=== PATIENT | female | born 1970 | race Caucasian/White ===

== ENCOUNTER → 2017-03-18 | Outpatient (CLI) | payer BC, SELFPAY | PROVIDERS: Visit Provider Physician Assistant | DX: M25.50 Pain in unspecified joint (principal) | CPT/HCPCS: 80053; 85025; 85651; 86038; 86140; 86200; 86431; 86617 ==

== ENCOUNTER → 2020-08-09 09:49 | Outpatient (CLI) | payer OTHER, SELFPAY ==
--- NOTE | 2020-08-09 09:49 | MM_ITS ---
PROCEDURE INFORMATION: Exam: MG Screening 3D Mammography Exam date and time: 08/09/2020 9:49 AM Age: 50 years old Clinical indication: Encounter for screening mammogram for malignant neoplasm of breast TECHNIQUE: Imaging protocol: Screening tomosynthesis and 2D mammography including computer-aided detection (CAD) when performed. COMPARISON: No relevant prior studies available. FINDINGS: MAMMOGRAPHY: Breast composition: The breast tissue is composed of scattered areas of fibroglandular density. Mass: None. Architectural distortion: None. Calcifications: No suspicious calcifications. Asymmetric density: None. Skin thickening: None. Axillary adenopathy: None. IMPRESSION: No mammographic evidence of malignancy. Annual screening is recommended unless otherwise clinically indicated. ASSESSMENT: BI-RADS Category 1: Negative
== END ==
PROVIDERS: PCP Physician Assistant; Visit Provider Physician Assistant
DX: Z12.31 Encounter for screening mammogram for malignant neoplasm of breast (principal)
CPT/HCPCS: 77063; 77067

== ENCOUNTER 2020-10-05 10:07 | Emergency (ER) | payer OTHER, SELFPAY ==
[2020-10-05 10:15] VITALS: BP 129/87; PULSE 90; RESP 18; TEMP 36.6; O2SAT 100; BMI 29.2
--- NOTE | 2020-10-05 10:25 | HMH.EDGENADL ---
ED Disposition Clinical Impression: Diverticulitis Cholelithiasis Qualifiers: Cholelithiasis location: gallbladder Cholecystitis presence: without cholecystitis Biliary obstruction: without biliary obstruction Qualified Code(s): K80.20 - Calculus of gallbladder without cholecystitis without obstruction Disposition: Home, Self-Care Condition on Discharge: Good Instructions: DI for Diverticulitis, DI for Acute Abdominal Pain Additional Instructions: Antibiotics as prescribed. Toradol as needed for pain. Follow-up with your primary care doctor next week. Additional instructions for ABDOMINAL PAIN: See your physician as soon as possible for further evaluation. Return immediately if worsening abdominal pain, vomiting, shortness of breath, fever, vomiting of blood or abdominal distention. Prescriptions: Ketorolac Tromethamine [Toradol 10mg tablet] 10 mg PO Q6HP PRN #10 tab PRN Reason: Moderate Pain Transmission Status: Pending to [facility] Ciprofloxacin HCl [Cipro 500mg Tab] 500 mg PO BID #20 tab Transmission Status: Pending to [facility] metroNIDAZOLE [Flagyl] 500 mg PO TID #30 tab Transmission Status: Pending to [facility] Referrals: Kirti Doyle PA [Primary Care Provider] - - Critical Care Critical Care Time: No Attestation: On 10/05/20, the high probability of a clinically significant, sudden or life threatening deterioration of the following system(s) required my full and direct attention, intervention and personal management. The time I documented below is in addition to time spent performing reported procedures but includes the following listed in this critical care notation. Medical Decision Making - Oj Inquiry Pt receiving controlled substance: No Vital Signs: 10/05/20 10:15 10/05/20 11:08 Temperature 97.9 F Temperature Source Oral Pulse Rate 85 Pulse Rate [Left Radial] 90 Respiratory Rate 18 18 Blood Pressure 128/99 H Blood Pressure [Right Arm] 129/87 Blood Pressure Mean 109 Blood Pressure Mean [Right Arm] 101 Blood Pressure Source [Right Arm] Automatic Cuff Blood Pressure Position [Right Arm] Sitting 02 Sat by Pulse Oximetry 100 98 Oxygen Delivery Method Room Air - Lab Data Lab Results 10/05/20 10:25: WBC 11.8 H, RBC 4.37, Hgb 13.2, Hct 37.5, MCV 85.8, MCH 30.3, MCHC 35.3, RDW 13.1, Plt Count 337, MPV 7.2 L, Neut % (Auto) 82.3 H, Lymph % (Auto) 13.5, [place] % (Auto) 2.9, Eos % (Auto) 1.0, Baso % (Auto) 0.4, Neut # (Auto) 9.7 H, Lymph # (Auto) 1.6, [place] # (Auto) 0.3, Eos # (Auto) 0.1, Baso # (Auto) 0.1 10/05/20 10:25: Sodium 141, Potassium 3.9, Chloride 106, Carbon Dioxide 27, Anion Gap 11.9, BUN 11, Creatinine 0.70, Estimated Creat Clear 104, Estimated GFR 89, Est GFR ( Amer) 108, Glucose 110 H, Calcium 10.3 H, Total Bilirubin 0.5, AST 40 H, ALT 77, Alkaline Phosphatase 126, Total Protein 7.9, Albumin 4.6, Globulin 3.3 H, Albumin/Globulin Ratio 1.4, Amylase 51, Lipase 70 10/05/20 10:36: Urine Color Yellow, Urine Appearance Clear, Urine pH 6.0, Ur Specific [place] >= 1.030, Urine Protein Negative, Urine Glucose (UA) Negative, Urine Ketones Negative, Urine Blood 2+, Urine Nitrate Negative, Urine Bilirubin Negative, Urine Urobilinogen 0.2, Ur Leukocyte Esterase Negative, Urine RBC None, Urine WBC None, Ur Squamous Epith Cells Occasional, Urine Bacteria None Result diagrams: 10/05/20 10:25 10/05/20 10:25 Orders (Tests/Meds): ED MEDICATIONS Generic Name Dose Route Start Last Admin Trade Name Frechristine PRN Reason Stop Dose Admin Levofloxacin/Dextrose 750 mg in 150 mls @ 100 mls/hr 10/05/20 12:30 Levofloxacin 750mg/150ml Premix IV 10/19/20 12:29 Q24H ANKUR Protocol Metronidazole 500 mg in 100 mls @ 100 mls/hr 10/05/20 12:30 Flagyl 500mg/100ml Ivpb IV 10/19/20 12:29 Q8H ANKUR Protocol Discontinued Medications Generic Name Dose Route Start Last Admin Trade Name Mariana
[2020-10-05 10:46] LABS: Microscopic, Urine URINE MICROSCOPIC (MICROSCOPIC)
[2020-10-05 10:47] LABS: Appearance,Urine CLEAR (Clear); Bilirubin,Urine Negative (Negative); Blood, Urine 2+ (Negative); Color,Urine YELLOW (Yellow); Glucose,Urine (UA) Negative (Negative); Ketones,Urine Negative (Negative); Leukocyte Esterase,Urine Negative (Negative); Nitrate,Urine Negative (Negative); Protein,Urine Negative (Negative); Specific Gravity, Urine >= 1.030 (1.005-1.030); Urobilinogen,Urine 0.2 EU/dl (0.2)
[2020-10-05 10:50] LABS: Basophils # 0.1 K/mm3 (0-0.2); Basophils % 0.4 % (0.1-2.0); Eosinophils # 0.1 K/mm3 (0.0-0.4); Hematocrit 37.5 % (37.0-47.0); Hemoglobin 13.2 g/dL (12.2-16.2); Lymphocytes # 1.6 K/mm3 (0.7-4.5); Lymphocytes % 13.5 % (10-50); Mean Corpuscular HGB Conc 35.3 g/dL (31.8-35.4); Mean Corpuscular Hemoglobin 30.3 pg (27.0-31.2); Mean Corpuscular Volume 85.8 fl (81-99); Mean Platelet Volume 7.2 fl (7.4-10.4); Monocytes # 0.3 K/mm3 (0.1-1.0); Monocytes % 2.9 % (1.7-9.3); Neutrophils # 9.7 K/mm3 (1.8-7.8); Neutrophils % 82.3 % (37.0-80.0); Platelet Count 337 K/mm3 (142-424); Red Blood Count 4.37 M/mm3 (4.20-5.40); Red Cell Distribution Width 13.1 % (11.5-17.5); White Blood Count 11.8 K/mm3 (4.8-10.8)
[2020-10-05 10:59] LABS: Chloride 106 mmol/L (98-107); Potassium 3.9 mmoL/L (3.5-5.1); Sodium 141 mmol/L (136-145)
--- NOTE | 2020-10-05 11:00 | CT_ITS ---
PROCEDURE: CT ABDOMEN PELVIS W CON CLINICAL INDICATION: abdo pain Lower abdominal pain COMPARISON: No exams were available for comparison TECHNIQUE: IV Contrast: 75ML Isovue 370 Oral Contrast None Axial images obtained with sagittal and coronal reformats. All CT scans at the facility use one or more dose reduction, viz: automated exposure control, ma/kV adjustment per patient size (including targeted exams where dose is matched to indication, i.e. head), or iterative reconstruction technique. FINDINGS: LOWER THORAX: No acute finding ABDOMEN & PELVIS: The liver, spleen, adrenal glands, and pancreas have an unremarkable appearance. Gallstones are present. No obvious biliary dilatation. There is a 3.8 cm right renal cyst in the upper pole of the right kidney. No renal or ureteral calculi. No hydronephrosis. Unremarkable appendix. No intestinal obstruction. There is a mild amount of retained colonic feces. There is colonic diverticulosis. There is a focal area of thickening involving the sigmoid colon in the mid pelvic region with some stranding of the pericolic fat suspicious for acute diverticulitis. There is a minimal amount of pelvic fluid but no localized abscess apparent and no evidence of perforation. There has been a prior hysterectomy. No acute bony findings. IMPRESSION: 1. Colonic diverticulosis with focal thickening of the sigmoid colon in the mid pelvic region and stranding of the pericolic fat suspicious for acute diverticulitis without evidence of abscess or perforation. There is a small amount fluid in the pelvis. Strongly recommend convalescent follow-up with colonoscopy as sigmoid neoplasm could have a similar appearance. 2. Cholelithiasis Dictated by: Anton Bello MD 10/05/2020 12:14 Anton Bello MD in [place] 10/05/2020 12:14
[2020-10-05 11:01] LABS: Alanine Aminotransferase 77 U/L (12-78); Amylase 51 U/L (30-110); Aspartate Amino Transferase 40 U/L (14-36); Blood Urea Nitrogen 11 mg/dl (7-17); Creatinine Clearance Estimated 104 mL/min (50-200); Estimated Glomerular Filt Rate 89 ml/min (>60); GFR (African American) 108 ML/MIN (>60)
[2020-10-05 11:02] LABS: Albumin Level 4.6 g/dl (3.5-5.0); Albumin/Globulin Ratio 1.4 (1.1-1.8); Alkaline Phosphatase 126 U/L (38-126); Anion Gap 11.9 mEq/L (5-15); Bilirubin,Total 0.5 mg/dl (0.2-1.3); Calcium 10.3 mg/dl (8.4-10.2); Carbon Dioxide 27 mmol/L (22.0-30.0); Globulin 3.3 g/dL (1.3-3.2); Glucose 110 mg/dl (74-100); Lipase 70 U/L (23-300); Total Protein,Serum 7.9 g/dl (6.3-8.2)
[2020-10-05 11:08] VITALS: BP 128/99; PULSE 85; RESP 18; O2SAT 98
[2020-10-05 11:13] LABS: Squamous Epithelial Cell,Urine Occasional #/hpf (0-5)
--- NOTE | 2020-10-05 11:13 | PC.NURSE ---
Pt states she doesnt take naproxen just because it upsets her stomach, not that she is allergic to it.
[2020-10-05 11:30] VITALS: BP 136/80; PULSE 76; RESP 20; O2SAT 98
[2020-10-05 14:32] VITALS: BP 137/84; PULSE 84; RESP 20; TEMP 36.6
== END 2020-10-05 14:37 | disposition home or self-care (01) ==
PROVIDERS: Emergency Provider Emergency Medicine; PCP Physician Assistant
DX: K57.92 Diverticulitis of intestine, part unspecified, without perforation or abscess without bleeding (principal); K80.20 Calculus of gallbladder without cholecystitis without obstruction; F41.9 Anxiety disorder, unspecified; F17.210 Nicotine dependence, cigarettes, uncomplicated
CPT/HCPCS: 74177; 80053; 81001; 82150; 83690; 85025; 96365; 96367; 96375; 99283; J1956; Q9967

== ENCOUNTER → 2020-10-09 13:29 | Outpatient (CLI) | payer OTHER, SELFPAY | PROVIDERS: Visit Provider Family Medicine | DX: N39.0 Urinary tract infection, site not specified (principal) | CPT/HCPCS: 87086 ==

== ENCOUNTER → 2020-11-29 15:18 | Outpatient (CLI) | payer OTHER, SELFPAY | PROVIDERS: PCP Family Medicine; Visit Provider Family Medicine | DX: Z01.812 Encounter for preprocedural laboratory examination (principal); Z11.52 Encounter for screening for COVID-19; U07.1 COVID-19; Z12.11 Encounter for screening for malignant neoplasm of colon | CPT/HCPCS: U0003 ==

== ENCOUNTER → 2020-12-15 15:32 | Outpatient (CLI) | payer OTHER, SELFPAY ==
[2020-12-17 14:01] LABS: Adenovirus F 40/41, stool Not Detected (NotDetected); Astrovirus Not Detected (NotDetected); Campylobacter Not Detected (NotDetected); Cryptosporidium Not Detected (NotDetected); Cyclospora Cayetanesis Not Detected (NotDetected); Entamoeba histolytica Not Detected (NotDetected); Enteroaggregative E coli Not Detected (NotDetected); Enteropathogenic E coli Not Detected (NotDetected); Enterotoxigenic E coli Not Detected (NotDetected); Giardia lamblia Not Detected (NotDetected); Norovirus Not Detected (NotDetected); Plesimonas Shigalloides, PCR Not Detected (NotDetected); Rotavirus A Not Detected (NotDetected); Salmonella, PCR Not Detected (NotDetected); Sapovirus Not Detected (NotDetected); Shiga-like toxin E coli Not Detected (NotDetected); Shigella Enterovasive E coli Not Detected (NotDetected); Vibrio Cholerae Not Detected (NotDetected); Vibrio, PCR Not Detected (NotDetected); Yersinia Entercolitica, PCR Not Detected (NotDetected)
[2020-12-17 18:10] LABS: Clostridium Difficile A/B, PCR Detected (NotDetected)
== END ==
PROVIDERS: Visit Provider Family Medicine
DX: R19.5 Other fecal abnormalities (principal); A04.72 Enterocolitis due to Clostridium difficile, not specified as recurrent
CPT/HCPCS: 87507

== ENCOUNTER 2021-01-09 08:38 | Day surgery (SDC) | payer OTHER, SELFPAY ==
[2021-01-07 09:30] VITALS: BMI 29.7
[2021-01-09] VITALS (8 sets, daily range): BP systolic 103–128; BP diastolic 55–75; PULSE 65–87; RESP 16–18; TEMP 36.4–36.7; O2SAT 92–100
--- NOTE | 2021-01-09 08:56 | P.PN_ITS ---
[facility] Anesthesia Checklist - Patient Identification Patient Identification: Arm Band - Structural Data Admitted From: Home Planned Operative Procedure/s: Colonoscopy Consent for Planned Operative Procedure(s) Verified: Yes - NPO Status Verified Time NPO: 04:00 (Prep) - Airway Assessment C-Spine Mobility Assessed: Yes TMJ Mobility Assessed: Yes Dentition: Good Dentition - Neurological Assessment Level of Consciousness: Awake Hx Seizures: No Numbness or tingling in extremities: No - Anesthesia Plan Anesthesia Risk discussed: Yes Anesthesia Plan: Verified ASA Class: II Anesthesia Type: MAC [facility] History Medical History: Reports:: Anxiety Denies:: Cancer, Diabetes Mellitus Type 1, Diabetes Mellitus Type 2, Internal Pacemaker, MRSA *Have you ever received a pneumonia vaccine?: No *Have you received a flu vaccine this season?: No Anesthesia experience/problems:: None Other Surgeries: Yes: Hysterectomy-Total. No: Pacemaker Amputation: No Fractures: Yes (patella) - *Social History Last grade of school completed: Advanced degree Smoking Status: Current every day smoker Tobacco Type: cigarettes # Packs/Day (cigarettes): 1 Alcohol Intake: never Alcohol Intake Frequency:: holidays/special occasions only Substance Use Type: denies use *Occupational Status:: employed Housing: apartment Household Members: spouse *Travel in the last 8 weeks: Inside the [place] - Psychiatric History Pschychiatric History:: Reports:: Anxiety Family Hx:: Cancer
--- NOTE | 2021-01-09 09:27 | HMH.GSHP ---
HPI HPI: Patient is a 50-year-old female referred by Dr. Aguirre for colonoscopy. She had presented to the emergency department on 10/05/[address] scan revealed thickening of the sigmoid colon with stranding consistent with diverticulitis. Follow-up colonoscopy was recommended. She has been on ciprofloxacin and metronidazole. She states she is doing better but has some occasional discomfort. She has cut out cigarettes and soda recently and is taking a high-fiber diet. She does however have a longstanding history of some occasional chronic GI type symptoms and stated that she had undergone sigmoidoscopy about 25 years ago. She describes being lactose intolerant. She has never had prior colonoscopy. She does state that her grandfather was diagnosed with colon cancer on postmortem at an advanced age. [facility] History I have reviewed the patient's past medical history: Yes Medical History: Reports:: Anxiety Denies:: Cancer, Diabetes Mellitus Type 1, Diabetes Mellitus Type 2, Internal Pacemaker, MRSA, Seizures *Have you ever received a pneumonia vaccine?: No *Have you received a flu vaccine this season?: No Anesthesia experience/problems:: None Other Surgeries: Yes: Hysterectomy-Total. No: Pacemaker Amputation: No Fractures: Yes (patella) - *Social History Last grade of school completed: Advanced degree Smoking Status: Current every day smoker Tobacco Type: cigarettes # Packs/Day (cigarettes): 1 Alcohol Intake: never Alcohol Intake Frequency:: holidays/special occasions only Substance Use Type: denies use *Occupational Status:: employed Housing: apartment Household Members: spouse *Travel in the last 8 weeks: Inside the [facility] - Psychiatric History Pschychiatric History:: Reports:: Anxiety Family Hx:: Cancer Review of Systems - Review of Systems Review of systems:: pertinent systems reviewed and negative unless documented below Meds Home Medications Medication Instructions Recorded Confirmed Type No Known Home Medications 01/07/21 01/09/21 History Allergies Allergy/AdvReac Type Severity Reaction Status Date / Time naproxen Allergy Mild Vomiting Verified 01/09/21 09:05 penicillin G Allergy Mild Rash Verified 01/09/21 09:05 Exam Vital signs and Labs for Last 24 Hours: Temp Pulse Resp BP Pulse Ox 98.0 F 87 18 103/55 L 97 01/09/21 09:00 01/09/21 09:00 01/09/21 09:00 01/09/21 09:00 01/09/21 09:00 I & O for Last 24 hours: Intake & Output 01/06/21 01/07/21 01/08/21 01/09/21 11:59 11:59 11:59 11:59 Weight 152 lb - Constitutional no acute distress - *Routine HEENT Exam Head: Present: normocephalic Eye: Present: EOMI, PERRL ENT: Present: mucous membranes moist - *Routine Neck Exam Present: supple. Absent: lymphadenopathy - *Routine Respiratory Exam Present: CTA bilaterally - *Routine Cardiovascular Exam Present: RRR - *Routine Abdominal Exam Present: soft, normoactive bowel sounds. Absent: tenderness - *Routine Rectal Exam Rectal:: deferred - *Routine Genitalia Exam Genitalia:: deferred - *Routine Extremities Exam Absent: cyanosis, clubbing, edema - *Routine Skin Exam Present: warm. Absent: rash - *Routine Neurological Exam Present: alert, oriented X3 Assessment and Plan - Assessment and plan all Dx Assessment and Plan for all problems:: Plan for colonoscopy
--- NOTE | 2021-01-09 10:24 | HMH.SCOPE ---
- Procedure: Date: 01/09/21 Patient Date of :: 1970 Procedure Performed:: Partial colonoscopy Indications:: Patient is a 50-year-old female referred by Dr. Aguirre for colonoscopy. She had presented to the emergency department on 10/05/[address] scan revealed thickening of the sigmoid colon with stranding consistent with diverticulitis. Follow-up colonoscopy was recommended. She has been on ciprofloxacin and metronidazole. She states she is doing better but has some occasional discomfort. She has cut out cigarettes and soda recently and is taking a high-fiber diet. She does however have a longstanding history of some occasional chronic GI type symptoms and stated that she had undergone sigmoidoscopy about 25 years ago. She describes being lactose intolerant. She has never had prior colonoscopy. She does state that her grandfather was diagnosed with colon cancer on postmortem at an advanced age. Performing Provider:: Rome Carreon MD Referring Provider:: Simon Aguirre MD Sedation:: MAC sedation Procedure:: Patient was taken to endoscopy procedure room. She was positioned in lateral decubitus position. Adequate intravenous sedation was achieved with anesthesia titration of propofol. Variable stiffness Olympus colonoscope was inserted via the anus. It was unable to be advanced beyond the rectosigmoid. Multiple attempts were made for prolonged duration and the colonoscope was unable to be advanced beyond about 25 cm due to possible severe diverticulosis. The colonoscope was then removed after prolonged period of time and Olympus endoscope was inserted. With some difficulty it was able to be advanced beyond the rectosigmoid. There appeared to be significant chronic diverticulosis at this location. The endoscope was able to be advanced to approximately the hepatic flexure. Due to the limited length of the endoscope was unable to be advanced into the right colon. The endoscope was slowly withdrawn through the colon with careful surveillance. Colonic preparation was fair as there was some liquid particulate stool with vegetable matter but adequate visualization was achieved with irrigation and suctioning. There was noted to be significant distal sigmoid diverticulosis but no evidence of any mass or polyps. The colonoscope was withdrawn. Findings:: Severe distal sigmoid diverticulosis with likely chronic fibrosis Recommendations:: I will obtain a barium enema post procedure to evaluate the right colon. Pending the findings on barium enema likely repeat colonoscopy 6 to 12 months Complications:: None immediately apparent Estimated blood obtained (mL): 3
== END 2021-01-09 12:15 | disposition home or self-care (01) ==
LOC: OUTP 08:40
PROVIDERS: PCP Family Medicine; Visit Provider Surgery
PROC: 0DJD8ZZ Inspection of Lower Intestinal Tract, Via Natural or Artificial Opening Endoscopic (ICD-10-PCS; CPT 45330; principal; 2021-01-09 09:30)
DX: K57.32 Diverticulitis of large intestine without perforation or abscess without bleeding (principal); Z87.19 Personal history of other diseases of the digestive system; F41.9 Anxiety disorder, unspecified; Z72.0 Tobacco use; Z88.0 Allergy status to penicillin; Z88.6 Allergy status to analgesic agent
CPT/HCPCS: 45330; J2405; J2704

== ENCOUNTER → 2021-01-09 13:50 | Outpatient (CLI) | payer OTHER, SELFPAY ==
--- NOTE | 2021-01-09 13:57 | FL_ITS ---
PROCEDURE: FL BARIUM ENEMA CLINICAL INDICATION: INCOMPLETE COLONASCOPY COMPARISON: CT CT ABDOMEN PELVIS W CON from 10/05/2020 FINDINGS: Fluoroscopy time: 3 minutes This exam was very limited as the patient was not able to tolerate complete filling of the colon. There is prominent diverticulosis of the descending colon and sigmoid colon. There is a 3 cm long segment narrowing at the junction of the descending and sigmoid colon. There is some irregularity of the mucosa at this region. The patient did appear to have sigmoid diverticulitis at this region on an older CT scan. This could represent a colon neoplasm or inflammatory stricture. Please correlate with colonoscopy findings. The colon was not adequately distended proximal to this lesion secondary to patient's discomfort IMPRESSION: Colonic diverticulosis with 3 cm long segment of irregular narrowing at the junction of the descending and sigmoid colon. Differential diagnosis includes colonic neoplasm or postinflammatory stricture. Please correlate with sigmoidoscopy findings. Dictated by: Anton Bello MD 01/09/2021 19:53 Anton Bello MD in [place] 01/09/2021 19:53
== END ==
PROVIDERS: PCP Family Medicine; Visit Provider Surgery
DX: K57.92 Diverticulitis of intestine, part unspecified, without perforation or abscess without bleeding (principal)
CPT/HCPCS: 74270

== ENCOUNTER → 2021-01-31 10:21 | Outpatient (CLI) | payer OTHER, SELFPAY ==
[2021-01-31 10:26] LABS: Adenovirus F 40/41, stool Not Detected (NotDetected); Astrovirus Not Detected (NotDetected); Campylobacter Not Detected (NotDetected); Clostridium Difficile A/B, PCR Not Detected (NotDetected); Cryptosporidium Not Detected (NotDetected); Cyclospora Cayetanesis Not Detected (NotDetected); Entamoeba histolytica Not Detected (NotDetected); Enteroaggregative E coli Not Detected (NotDetected); Enteropathogenic E coli Not Detected (NotDetected); Enterotoxigenic E coli Not Detected (NotDetected); Giardia lamblia Not Detected (NotDetected); Norovirus Not Detected (NotDetected); Plesimonas Shigalloides, PCR Not Detected (NotDetected); Rotavirus A Not Detected (NotDetected); Salmonella, PCR Not Detected (NotDetected); Sapovirus Not Detected (NotDetected); Shiga-like toxin E coli Not Detected (NotDetected); Shigella Enterovasive E coli Not Detected (NotDetected); Vibrio Cholerae Not Detected (NotDetected); Vibrio, PCR Not Detected (NotDetected); Yersinia Entercolitica, PCR Not Detected (NotDetected)
== END ==
PROVIDERS: Visit Provider Nurse Practitioner Family
DX: R19.5 Other fecal abnormalities (principal); K57.92 Diverticulitis of intestine, part unspecified, without perforation or abscess without bleeding
CPT/HCPCS: 87507

== ENCOUNTER 2021-02-28 14:59 | Outpatient (CLI) | payer OTHER, SELFPAY ==
[2021-02-28 15:13] VITALS: BMI 29.5
[2021-02-28 15:20] VITALS: BP 157/89; PULSE 88; RESP 18; O2SAT 95
[2021-02-28 15:32] LABS: Adenovirus F 40/41, stool Not Detected (NotDetected); Astrovirus Not Detected (NotDetected); Campylobacter Not Detected (NotDetected); Cryptosporidium Not Detected (NotDetected); Cyclospora Cayetanesis Not Detected (NotDetected); Entamoeba histolytica Not Detected (NotDetected); Enteroaggregative E coli Not Detected (NotDetected); Enteropathogenic E coli Not Detected (NotDetected); Enterotoxigenic E coli Not Detected (NotDetected); Giardia lamblia Not Detected (NotDetected); Norovirus Not Detected (NotDetected); Plesimonas Shigalloides, PCR Not Detected (NotDetected); Rotavirus A Not Detected (NotDetected); Salmonella, PCR Not Detected (NotDetected); Sapovirus Not Detected (NotDetected); Shiga-like toxin E coli Not Detected (NotDetected); Shigella Enterovasive E coli Not Detected (NotDetected); Vibrio Cholerae Not Detected (NotDetected); Vibrio, PCR Not Detected (NotDetected); Yersinia Entercolitica, PCR Not Detected (NotDetected)
[2021-02-28 16:25] VITALS: BP 146/84; PULSE 81; RESP 18
[2021-02-28 19:58] LABS: Clostridium Difficile A/B, PCR Detected (NotDetected)
== END 2021-02-28 16:25 | disposition home or self-care (01) ==
LOC: INF 15:01
PROVIDERS: PCP Family Medicine; Visit Provider Colon & Rectal Surgery
DX: K57.30 Diverticulosis of large intestine without perforation or abscess without bleeding (principal)
CPT/HCPCS: 87045; 87507; 96360

== ENCOUNTER → 2021-10-21 14:21 | Outpatient (CLI) | payer OTHER, SELFPAY ==
[2021-10-21 14:36] LABS: Hemoglobin A1C 4.9 % (4.0-6.0)
[2021-10-21 21:22] LABS: Thyroid Stimulating Hormone 1.41 uIU/mL (0.465-4.68)
== END ==
PROVIDERS: PCP Family Medicine; Visit Provider Family Medicine
DX: R63.5 Abnormal weight gain (principal)
CPT/HCPCS: 83036; 84443

== ENCOUNTER 2021-12-01 19:02 | Observation (INO) | payer OTHER, SELFPAY ==
[2021-12-01] VITALS (9 sets, daily range): BP systolic 102–153; BP diastolic 49–85; PULSE 64–92; RESP 16; TEMP 36.8; O2SAT 96–99; BMI 32.4
--- NOTE | 2021-12-01 19:34 | CT_ITS ---
PROCEDURE INFORMATION: Exam: CT Abdomen And Pelvis Without Contrast Exam date and time: 12/01/2021 7:45 PM Age: 51 years old Clinical indication: Other: Gi bleeding; Prior surgery; Surgery date: 6+ months; Surgery type: Section of bowel removed February 2021 due to diverticulitis. Hysterectomy. TECHNIQUE: Imaging protocol: Computed tomography of the abdomen and pelvis without contrast. Radiation optimization: All CT scans at this facility use at least one of these dose optimization techniques: automated exposure control; mA and/or kV adjustment per patient size (includes targeted exams where dose is matched to clinical indication); or iterative reconstruction. COMPARISON: CT ABDOMEN PELVIS W CON 10/05/2020 11:51 AM FINDINGS: Liver: Parenchymal enhancement is not evaluated without contrast. No hepatomegaly. Gallbladder and bile ducts: Calcified gallstones within the gallbladder lumen. Pancreas: Parenchymal enhancement is not evaluated without contrast. No ductal dilation. Spleen: Parenchymal enhancement is not evaluated without contrast. No splenomegaly. Adrenal glands: No mass. Kidneys and ureters: 4.1 cm low-density right renal lesion which is likely a cyst. No hydronephrosis. Stomach and bowel: Postsurgical changes. Diverticulosis coli without evidence for diverticulitis. No obstruction. Appendix: No evidence of appendicitis. Intraperitoneal space: No free air. No significant fluid collection. Vasculature: Limited evaluation without contrast. No abdominal aortic aneurysm. Lymph nodes: No enlarged lymph nodes. Urinary bladder: No acute abnormality. Reproductive: Status post hysterectomy. Bones/joints: No acute fracture. Soft tissues: Limited evaluation without contrast. No significant soft tissue swelling. IMPRESSION: 1. Calcified gallstones within the gallbladder lumen. 2. Diverticulosis coli without evidence for diverticulitis.
--- NOTE | 2021-12-01 19:34 | XR_ITS ---
PROCEDURE INFORMATION: Exam: XR Chest Exam date and time: 12/01/2021 7:38 PM Age: 51 years old Clinical indication: Other: Gi bleed; Prior surgery; Surgery date: 6+ months; Surgery type: Bowel removed due to diverticulits February 2021, hysterectomy. TECHNIQUE: Imaging protocol: Radiologic exam of the chest. Views: 2 views. COMPARISON: CR FL BARIUM ENEMA 01/09/2021 2:21 PM FINDINGS: Lungs: No consolidation. Pleural spaces: No pneumothorax. Heart/Mediastinum: No cardiomegaly. Bones/joints: No acute fracture. IMPRESSION: No acute findings.
--- NOTE | 2021-12-01 19:44 | PC.NURSE ---
Pt gone to RAD
[2021-12-01 19:49] LABS: Basophils # 0.1 K/mm3 (0-0.2); Basophils % 0.7 % (0.1-2.0); Eosinophils # 0.1 K/mm3 (0.0-0.4); Hematocrit 42.6 % (37.0-47.0); Hemoglobin 13.9 g/dL (12.2-16.2); Mean Corpuscular HGB Conc 32.5 g/dL (31.8-35.4); Mean Corpuscular Volume 89.3 fl (81-99); Mean Platelet Volume 7.3 fl (7.4-10.4); Monocytes # 0.3 K/mm3 (0.1-1.0); Monocytes % 3.1 % (1.7-9.3); Neutrophils # 6.9 K/mm3 (1.8-7.8); Neutrophils % 74.1 % (37.0-80.0); Platelet Count 368 K/mm3 (142-424); Red Blood Count 4.77 M/mm3 (4.20-5.40); Red Cell Distribution Width 13.1 % (11.5-17.5); White Blood Count 9.2 K/mm3 (4.8-10.8)
--- NOTE | 2021-12-01 19:49 | PC.NURSE ---
PT TO RADIOLOGY.
--- NOTE | 2021-12-01 19:55 | PC.NURSE ---
Pt back from RAD
--- NOTE | 2021-12-01 19:55 | PC.NURSE ---
Pt unable to provide urine for specimen at this time
[2021-12-01 19:58] LABS: Alanine Aminotransferase 65 U/L (12-78); Albumin Level 4.7 g/dl (3.5-5.0); Albumin/Globulin Ratio 1.3 (1.1-1.8); Alkaline Phosphatase 123 U/L (38-126); Anion Gap 13.8 mEq/L (5-15); Aspartate Amino Transferase 58 U/L (14-36); Bilirubin,Total 0.4 mg/dl (0.2-1.3); Blood Urea Nitrogen 14 mg/dl (7-17); Calcium 9.6 mg/dl (8.4-10.2); Carbon Dioxide 30 mmol/L (22.0-30.0); Chloride 101 mmol/L (98-107); Creatinine Clearance Estimated 89 mL/min (50-200); Estimated Glomerular Filt Rate 66 ml/min (>60); Ethyl Alcohol < 10 mg/dl (0-10); GFR (African American) 80 ML/MIN (>60); Globulin 3.6 g/dL (1.3-3.2); Glucose 109 mg/dl (74-100); Lipase 99 U/L (23-300); Potassium 3.8 mmoL/L (3.5-5.1); Sodium 141 mmol/L (136-145); Total Protein,Serum 8.3 g/dl (6.3-8.2)
--- NOTE | 2021-12-01 20:11 | PC.NURSE ---
PT AND FAMILY UPDATED. NO ACUTE DISTRESS NOTED. PT AWARE OF EXPECTED WAIT TIMES. WCM.
[2021-12-01 20:17] LABS: Occult Blood,Gastric Fluid Positive (Negative)
[2021-12-01 20:23] LABS: Amylase 76 U/L (30-110)
[2021-12-01 20:29] LABS: C-Reactive Protein 13.5 mg/L (0-4)
[2021-12-01 20:41] LABS: Erythrocyte Sedimentation Rate 49 mm/hr (0-20)
[2021-12-01 21:10] LABS: Microscopic, Urine URINE MICROSCOPIC (MICROSCOPIC)
[2021-12-01 21:12] LABS: Appearance,Urine CLEAR (Clear); Bilirubin,Urine Negative (Negative); Blood, Urine Negative (Negative); Color,Urine YELLOW (Yellow); Glucose,Urine (UA) Negative (Negative); Ketones,Urine Negative (Negative); Leukocyte Esterase,Urine Negative (Negative); Nitrate,Urine Negative (Negative); Protein,Urine Negative (Negative); Specific Gravity, Urine 1.015 (1.005-1.030); Urobilinogen,Urine 0.2 EU/dl (0.2)
[2021-12-01 21:25] LABS: WBC,Urine Occasional #/hpf (0-3)
[2021-12-01 21:26] LABS: Amorphous Sediment,Urine 3+ /lpf; Bacteria,Urine 1+ /lpf
--- NOTE | 2021-12-01 21:47 | HMH.EDNVD ---
Discharge Plan Disposition Chief Complaint: Nausea/Vomiting/Diarrhea Prescriptions Prescriptions: No Action metformin 500 mg tablet 500 mg PO DAILY bupropion HCl [Wellbutrin XL] 150 mg tablet extended release 24 hr 150 mg PO DAILY Discharge ED Provider: Robin Estrada Nausea/Vomiting/Diarrhea HPI General Chief complaint: Nausea/Vomiting/Diarrhea Stated complaint: vomiting Blood Time Seen by Provider: 12/01/21 20:00 Mode of Arrival: Ambulatory Source of Information: Patient and Medical Record Limitations: No Limitations Description of Symptoms (Recalled from ER Triage Doc. by RN): PT REPORTS THAT SHE HAS HAD THREE EPISODES OF BLOODY EMESIS SINCE 1700. PT REPORTS NAUSEA SINCE SHE WOKE UP THIS AM. PREVIOUS HX OF DIVERTICULITS. COLON RESECTION 1 YEAR AGO. PT WAS RECENTLY PLACED ON WEIGHT LOSS DRUGS. History of Present Illness HPI Narrative: not feeling well today and had 3 episodes of bloody emesis - no melena complaint: nausea, abdominal pain and other Onset (ago): hour(s) Description of Vomiting: bloody and coffee grounds Associated Abdominal Pain: Yes Location of pain: epigastric Severity: moderate Associated symptoms: denies other symptoms Related Data Home Medications Medication Instructions Recorded Confirmed bupropion HCl 150 mg 24 hr tablet, 150 mg PO DAILY Weight loss 12/01/21 12/01/21 extended release (Wellbutrin XL) metformin 500 mg tablet 500 mg PO DAILY Weight loss 12/01/21 12/01/21 Allergies Allergy/AdvReac Type Severity Reaction Status Date / Time naproxen Allergy Mild Vomiting Verified 02/12/21 15:32 penicillin G Allergy Mild Rash Verified 02/12/21 15:32 PFSH PFS Medical History (Updated 12/01/21 @ 19:51 by Lea Moreira RN) Bronchitis Diverticulosis Ear pain, right Surgical History (Updated 12/01/21 @ 19:52 by Lea Moreira RN) History of colon resection History of hysterectomy Social History Smoking Status: Never smoker alcohol intake: never substance use type: denies use current occupational status: employed Travel in the last 8 weeks: None household members: spouse housing: apartment current occupation: [employer] caffeine: Yes ROS Obtained: Yes Systems reviewed as appropriate & no additional complaints except as documented Constitutional Constitutional: Reports fatigue, Denies fever(s) and Denies headache(s) ENT Ears, Nose, Mouth, and Throat: Denies headache(s) Cardiovascular Cardiovascular: Denies chest pain with activity Respiratory Respiratory: Denies cough Gastrointestinal Gastrointestingal: Reports as per HPI, abdominal pain and coffee ground emesis; Denies melena Genitourinary Female Genitourinary: Denies hematuria Musculoskeletal Musculoskeletal: Denies back pain Integumentary/Breasts Skin/Breast: Denies rash Neurologic Neurologic: Denies headache(s) Endocrine Endocrine: Reports fatigue Physical Exam General General appearance: alert Head Head exam: normocephalic Eye Eye exam: Present PERRL and EOMI ENT ENT exam: Present mucous membranes moist Neck Neck exam: Present trachea midline Respiratory Respiratory exam: Present normal lung sounds bilaterally; Absent respiratory distress Cardiovascular Cardiovascular exam: Present regular rate Abdominal Exam Abdominal exam: Present soft; Absent guarding or rebound Abdominal tenderness: Present epigastrium Extremities Exam Extremities exam: Present full ROM Neurological Exam Neurological exam: Present alert, oriented X3 and CN II-XII intact Psychiatric Psychiatric exam: Present normal affect Skin Skin exam: Absent rash Medical Decision Making Medical Records Medical records reviewed: Yes I reviewed the patient's medical records. Oj Inquiry Pt receiving controlled substance: No Vital Signs: 12/01/21 19:03 12/01/21 20:00 Temperature 98.3 F Temperature Source Oral Pulse Rate 87 Pulse Rate [Left Radial] 92 H Respiratory Rate 16 Blood Pressure
--- NOTE | 2021-12-01 22:17 | PC.NURSE ---
A BEDSIDE. NO ACUTE DISTRESS NOTED.
[2021-12-01 22:30] LABS: Coronavirus 19, PCR Not Detected (NotDetected); Influenza A, PCR Not Detected (NotDetected); Influenza B, PCR Not Detected (NotDetected)
--- NOTE | 2021-12-01 22:36 | PC.NURSE ---
PT AWARE OF PLAN TO ADMIT.
[2021-12-02] VITALS (20 sets, daily range): BP systolic 93–146; BP diastolic 55–91; PULSE 68–112; RESP 16–20; TEMP 36.2–37.1; O2SAT 96–99; BMI 33.0
--- NOTE | 2021-12-02 00:21 | PC.NURSE ---
Pt set phone password as Echo
--- NOTE | 2021-12-02 01:06 | PC.NURSE ---
Pt arrived to floor via wheelchair at this time.
--- NOTE | 2021-12-02 04:11 | PC.NURSE ---
pt admitted this shift. a&ox4. no complaints of nausea or vomiting. no complaints of pain. CB in reach
--- NOTE | 2021-12-02 06:19 | EXP.SURG.CON ---
History of Present Illness *Admission Date: 12/01/21 *Reason for visit:: Bloody vomiting *History of present illness: Patient presented to the emergency department in the evening of 12/01/2021 after she had 3 episodes of what she describes as bloody vomiting. She had nausea earlier that morning. Her only medication change has been recent weight loss drugs. She was found to have hemoglobin of 13.9. She underwent CT scan which revealed calcified gallstones within the gallbladder and diverticulosis. Of note, the patient did undergo colonoscopy on 01/09/2021. She had a CT scan which revealed some thickening of the sigmoid colon and stranding consistent with diverticulitis several months prior to that. Colonoscopy revealed diverticulosis with likely some chronic fibrosis and stricture was confirmed by barium enema and she ultimately required sigmoid colon resection. She describes onset of nausea with gross hematemesis. No prior history of ulcer disease. No previous similar history. [facility] Medical History (Updated 12/02/21 @ 01:18 by Lea Moreira RN) Bronchitis Diverticulosis Ear pain, right Surgical History (Updated 12/01/21 @ 19:52 by Lea oMreira RN) History of colon resection History of hysterectomy Social History Smoking Status: Never smoker alcohol intake: never substance use type: denies use current occupational status: employed Travel in the last 8 weeks: None household members: spouse housing: apartment current occupation: cpa caffeine: Yes Review of Systems Review of Systems Review of systems:: pertinent systems reviewed and negative unless documented below Constitutional Constitutional: Denies headache(s) ENT Ears, Nose, Mouth, and Throat: Denies headache(s) *Neurologic Neurologic: Denies headache(s) Meds Home Medications and Allergies Home Medications Medication Instructions Recorded Confirmed Type bupropion HCl 150 mg 24 hr tablet, 150 mg PO DAILY Weight loss 12/01/21 12/01/21 History extended release (Wellbutrin XL) metformin 500 mg tablet 500 mg PO DAILY Weight loss 12/01/21 12/01/21 History New Prescriptions to Start Prescriptions: Allergies Allergy/AdvReac Type Severity Reaction Status Date / Time shellfish derived Allergy Severe Difficulty Verified 12/02/21 07:01 Breathing naproxen Allergy Mild Vomiting Verified 02/12/21 15:32 penicillin G Allergy Mild Rash Verified 02/12/21 15:32 Exam (Inpt) Vital signs and Labs for Last 24 Hours: Temp Pulse Resp BP Pulse Ox 97.9 F 68 17 97/60 L 99 12/02/21 03:42 12/02/21 03:42 12/02/21 03:42 12/02/21 03:42 12/02/21 03:42 Laboratory Results - last 24 hr 12/01/21 19:32: WBC 9.2, RBC 4.77, Hgb 13.9, Hct 42.6, MCV 89.3, MCH 29.0, MCHC 32.5, RDW 13.1, Plt Count 368, MPV 7.3 L, Neut % (Auto) 74.1, Lymph % (Auto) 21.0, [place] % (Auto) 3.1, Eos % (Auto) 1.0, Baso % (Auto) 0.7, Neut # (Auto) 6.9, Lymph # (Auto) 2.0, [place] # (Auto) 0.3, Eos # (Auto) 0.1, Baso # (Auto) 0.1 12/01/21 19:32: Sodium 141, Potassium 3.8, Chloride 101, Carbon Dioxide 30, Anion Gap 13.8, BUN 14, Creatinine 0.90, Estimated Creat Clear 89, Estimated GFR 66, Est GFR ( Amer) 80, Glucose 109 H, Calcium 9.6, Total Bilirubin 0.4, AST 58 H, ALT 65, Alkaline Phosphatase 123, Total Protein 8.3 H, Albumin 4.7, Globulin 3.6 H, Albumin/Globulin Ratio 1.3, Lipase 99 12/01/21 19:32: Plasma/Serum Alcohol < 10 12/01/21 19:32: ESR 49 H 12/01/21 19:32: C-Reactive Protein 13.5 H, Amylase 76, Procalcitonin 0.040 12/01/21 19:38: Gastric Occult Blood Positive 12/01/21 21:00: Urine Color Yellow, Urine Appearance Clear, Urine pH 8.0, Ur Specific [place] 1.015, Urine Protein Negative, Urine Glucose (UA) Negative, Urine Ketones Negative, Urine Blood Negative, Urine Nitrate Negative, Urine Bilirubin Negative, Urine Urobilinogen 0.2, Ur Leukocyte Esterase Negative, Urine RBC None, Urine WBC Occasional, Ur Squamous Epith Cells 3-5, Amorphous Sediment 3+, Ur
[2021-12-02 06:29] LABS: Basophils # 0.1 K/mm3 (0-0.2); Eosinophils # 0.1 K/mm3 (0.0-0.4); Hematocrit 35.1 % (37.0-47.0); Hemoglobin 11.7 g/dL (12.2-16.2); Lymphocytes # 1.9 K/mm3 (0.7-4.5); Lymphocytes % 36.6 % (10-50); Mean Corpuscular HGB Conc 33.3 g/dL (31.8-35.4); Mean Corpuscular Hemoglobin 29.5 pg (27.0-31.2); Mean Corpuscular Volume 88.5 fl (81-99); Mean Platelet Volume 7.4 fl (7.4-10.4); Monocytes # 0.2 K/mm3 (0.1-1.0); Monocytes % 4.2 % (1.7-9.3); Neutrophils # 2.9 K/mm3 (1.8-7.8); Neutrophils % 56.2 % (37.0-80.0); Platelet Count 310 K/mm3 (142-424); Red Blood Count 3.96 M/mm3 (4.20-5.40); Red Cell Distribution Width 13.3 % (11.5-17.5); White Blood Count 5.1 K/mm3 (4.8-10.8)
[2021-12-02 06:42] LABS: Anion Gap 7.8 mEq/L (5-15); Blood Urea Nitrogen 12 mg/dl (7-17); Calcium 8.4 mg/dl (8.4-10.2); Carbon Dioxide 29 mmol/L (22.0-30.0); Chloride 107 mmol/L (98-107); Creatinine Clearance Estimated 116 mL/min (50-200); Estimated Glomerular Filt Rate 89 ml/min (>60); GFR (African American) 107 ML/MIN (>60); Glucose 90 mg/dl (74-100); Potassium 3.8 mmoL/L (3.5-5.1); Sodium 140 mmol/L (136-145)
--- NOTE | 2021-12-02 07:26 | P.CONPHA_ITS ---
[facility] Pharmacy VTE Monitoring Patient Demographics Admission date: 12/02/21 Report Date: 12/02/21 Time: 07:26 Patient Allergies shellfish derived Allergy (Severe, Verified 12/02/21 07:01) Difficulty Breathing naproxen Allergy (Mild, Verified 02/12/21 15:32) Vomiting penicillin G Allergy (Mild, Verified 02/12/21 15:32) Rash Height: 1.52 m Weight: 76.317 kg Current Active Problems (Updated 12/02/21 @ 01:18 by Lea Moreira RN) GI bleed (Acute) VTE Risk Labs: VTE Related Lab Results Hgb 11.7 g/dL (12.2-16.2) L D 12/02/21 06:21 Hct 35.1 % (37.0-47.0) L 12/02/21 06:21 Plt Count 310 K/mm3 (142-424) 12/02/21 06:21 BUN 12 mg/dl (7-17) 12/02/21 06:21 Creatinine 0.70 mg/dl (0.52-1.04) D 12/02/21 06:21 Estimated Creat Clear 116 mL/min (50-200) 12/02/21 06:21 Prophylaxis VTE Prophylaxis Ordered?: Yes Types of VTE Prophylaxis: TEDS Knee High Location of Applied Device: Bilateral Lower Extremeties
--- NOTE | 2021-12-02 07:26 | HMH.PHAINT1 ---
Pharmacy Intervention Comments: MEDICATION RECONCILIATION COMPLETED ON PATIENT USING EXTERNAL FILL HISTORY FROM PHARMACY. -IVORY BAINS, ELIZABETHD
--- NOTE | 2021-12-02 10:26 | HMH.SCOPE ---
Procedure: Date: 12/02/21 Patient Date of :: 1970 Procedure Performed:: Esophagogastroduodenoscopy with injection of epinephrine to assure hemostasis Indications:: Patient is a 51-year-old female who presented to the emergency department in the evening of 12/01/2021 after she had what she describes as 3 episodes of bloody vomiting. She had developed nausea and then hematemesis. Evaluation in the emergency department revealed a hemoglobin of 13.9. She did have a CT scan of the abdomen pelvis performed which revealed diverticulosis. Of note patient had previously undergone colonoscopy 1 year ago at which time she was found to have fibrosis from chronic diverticulitis and underwent laparoscopic colon resection in February [address] Ada Franz. She has not had any issues. She denies any prior history of ulcer disease. She was admitted for inpatient management and surgical consultation for EGD. Performing Provider:: Rome Carreon MD Referring Provider:: Simon Aguirre MD Sedation:: MAC sedation Procedure:: Patient was taken to endoscopy procedure room. She was positioned in lateral decubitus position. Adequate intravenous sedation was achieved with anesthesia titration of propofol. Olympus endoscope was inserted via the oropharynx. Esophagus was intubated and endoscope was advanced. Overall esophagus appeared relatively unremarkable. However, gastroesophageal junction was encountered at approximately 37 cm from the incisors. There was evidence of possible Kaufman's esophagus. There was a moderate sized erosion with exudate and red spot possibly consistent with vessel. There was no evidence of any bleeding at that time. Stomach was cannulated and insufflated. Retroflexion revealed a very tiny sliding hiatal hernia. Pylorus was traversed. Within the duodenal bulb there was some minor patchy nonerosive duodenitis. Endoscope was once again withdrawn into the distal esophagus. Given the clinical history and possible stigmata of recent bleeding decision was made for submucosal of epinephrine circumferentially. 9 mL of 0.1 mg/mL epinephrine was injected circumferentially around the erosion/ulceration at the GE junction to assure hemostasis. There was good hemostasis. Stomach was desufflated and the endoscope was withdrawn. Findings:: Gastroesophageal junction at 37 cm Erosions/tiny ulceration at the gastroesophageal junction Very tiny hiatal hernia Minor nonerosive duodenitis Recommendations:: I would recommend proton pump inhibitors. May consider Cytotec. Continue to monitor for clinical bleeding and hemoglobin stability. Complications:: None immediately apparent Estimated blood obtained (mL): 1
--- NOTE | 2021-12-02 13:29 | EXP.HP ---
History of Present Illness *Admission Date: 12/02/21 *Reason for visit:: gi bleed *History of present illness: Patient presented to the emergency department in the evening of 12/01/2021 after she had 3 episodes of what she describes as bloody vomiting. She had nausea earlier that morning. Her only medication change has been recent weight loss drugs. She was found to have hemoglobin of 13.9. She underwent CT scan which revealed calcified gallstones within the gallbladder and diverticulosis. Of note, the patient did undergo colonoscopy on 01/09/2021. She had a CT scan which revealed some thickening of the sigmoid colon and stranding consistent with diverticulitis several months prior to that. Colonoscopy revealed diverticulosis with likely some chronic fibrosis and stricture was confirmed by barium enema and she ultimately required sigmoid colon resection. She describes onset of nausea with gross hematemesis. No prior history of ulcer disease. No previous similar history. [facility] Medical History Bronchitis Diverticulosis Ear pain, right Surgical History History of colon resection History of esophagogastroduodenoscopy (EGD) History of hysterectomy Social History Smoking Status: Never smoker alcohol intake: never substance use type: denies use current occupational status: employed Travel in the last 8 weeks: None household members: spouse housing: apartment current occupation: c[employer] caffeine: Yes Review of Systems Review of Systems Review of systems:: pertinent systems reviewed and negative unless documented below Constitutional Constitutional: Denies headache(s) ENT Ears, Nose, Mouth, and Throat: Denies headache(s) *Cardiovascular Cardiovascular: Denies chest pain at rest *Respiratory Respiratory: Denies cough *Gastrointestinal Gastrointestinal: Reports as per HPI *Musculoskeletal Musculoskeletal: Denies joint swelling *Neurologic Neurologic: Denies headache(s) Meds Home Medications and Allergies Home Medications Medication Instructions Recorded Confirmed Type pantoprazole 40 mg tablet,delayed 40 mg PO DAILY #90 tabs 12/30/21 Rx release New Prescriptions to Start Prescriptions: Allergies Allergy/AdvReac Type Severity Reaction Status Date / Time shellfish derived Allergy Severe Difficulty Verified 12/19/21 08:53 Breathing naproxen Allergy Mild Vomiting Verified 12/19/21 08:53 penicillin G Allergy Mild Rash Verified 12/19/21 08:53 bupropion [From Wellbutrin] AdvReac GI bleed Verified 12/19/21 08:53 metformin AdvReac GI bleed Verified 12/19/21 08:53 Exam Data for Last 24 hours Vital signs and Labs for Last 24 Hours: Temp Pulse Resp BP Pulse Ox 97.5 F L 78 20 113/91 H 97 12/02/21 11:00 12/02/21 13:15 12/02/21 13:15 12/02/21 13:15 12/02/21 13:15 Laboratory Results - last 24 hr 12/01/21 19:32: WBC 9.2, RBC 4.77, Hgb 13.9, Hct 42.6, MCV 89.3, MCH 29.0, MCHC 32.5, RDW 13.1, Plt Count 368, MPV 7.3 L, Neut % (Auto) 74.1, Lymph % (Auto) 21.0, [place] % (Auto) 3.1, Eos % (Auto) 1.0, Baso % (Auto) 0.7, Neut # (Auto) 6.9, Lymph # (Auto) 2.0, [place] # (Auto) 0.3, Eos # (Auto) 0.1, Baso # (Auto) 0.1 12/01/21 19:32: Sodium 141, Potassium 3.8, Chloride 101, Carbon Dioxide 30, Anion Gap 13.8, BUN 14, Creatinine 0.90, Estimated Creat Clear 89, Estimated GFR 66, Est GFR ( Amer) 80, Glucose 109 H, Calcium 9.6, Total Bilirubin 0.4, AST 58 H, ALT 65, Alkaline Phosphatase 123, Total Protein 8.3 H, Albumin 4.7, Globulin 3.6 H, Albumin/Globulin Ratio 1.3, Lipase 99 12/01/21 19:32: Plasma/Serum Alcohol < 10 12/01/21 19:32: ESR 49 H 12/01/21 19:32: C-Reactive Protein 13.5 H, Amylase 76, Procalcitonin 0.040 12/01/21 19:38: Gastric Occult Blood Positive 12/01/21 21:00: Urine Color Yellow, Urine Appea
--- NOTE | 2021-12-02 17:33 | PC.NURSE ---
PT IS RESTING IN BED WITH VISITORS AT BEDSIDE. ALERT AND ORIENTED X4. AMBULATES TO THE BATHROOM. PT IS TOLERATING FULL LIQUIDS. LUNG SOUNDS CLEAR. ABDOMEN SOFT/NON TENDER WITH ACTIVE BOWEL SOUNDS. WILL CONTINUE TO MONITOR.
[2021-12-03 04:00] VITALS: BP 113/58; PULSE 81; RESP 16; TEMP 36.6; O2SAT 100
--- NOTE | 2021-12-03 04:10 | PC.NURSE ---
pt has denied abdominal pain and nausea t/o the night. she has had no episodes of vomiting. tolerating full liquid diet well. she has ambulated to the bathroom independently. remains on RA and tolerating well. NS infusing at 100 ml/hr. call light within reach, no needs at this time.
[2021-12-03 05:06] VITALS: BMI 33.0
[2021-12-03 05:56] LABS: Basophils # 0.1 K/mm3 (0-0.2); Basophils % 1.8 % (0.1-2.0); Eosinophils # 0.1 K/mm3 (0.0-0.4); Eosinophils % 1.7 % (0.1-12.0); Hematocrit 37.7 % (37.0-47.0); Hemoglobin 12.2 g/dL (12.2-16.2); Lymphocytes % 42.2 % (10-50); Mean Corpuscular HGB Conc 32.3 g/dL (31.8-35.4); Mean Platelet Volume 8.1 fl (7.4-10.4); Monocytes # 0.2 K/mm3 (0.1-1.0); Monocytes % 4.5 % (1.7-9.3); Neutrophils # 2.3 K/mm3 (1.8-7.8); Neutrophils % 49.8 % (37.0-80.0); Platelet Count 220 K/mm3 (142-424); Red Blood Count 4.06 M/mm3 (4.20-5.40); Red Cell Distribution Width 13.3 % (11.5-17.5); White Blood Count 4.6 K/mm3 (4.8-10.8)
[2021-12-03 06:42] LABS: Anion Gap 12.3 mEq/L (5-15); Blood Urea Nitrogen 6 mg/dl (7-17); Calcium 8.2 mg/dl (8.4-10.2); Carbon Dioxide 25 mmol/L (22.0-30.0); Chloride 108 mmol/L (98-107); Creatinine Clearance Estimated 116 mL/min (50-200); Estimated Glomerular Filt Rate 89 ml/min (>60); GFR (African American) 107 ML/MIN (>60); Glucose 89 mg/dl (74-100); Potassium 4.3 mmoL/L (3.5-5.1); Sodium 141 mmol/L (136-145)
--- NOTE | 2021-12-03 07:38 | EXP.SURG.PN ---
Subjective Patient reports: no new complaints Narrative: Patient has had no clinical bleeding. Her hemoglobin this morning is stable at 12.2. Admission hemoglobin was 13.9. Upper endoscopy yesterday revealed nonbleeding erosion/ulceration with probable stigmata of recent bleeding at the gastroesophageal junction and this was injected with epinephrine. Patient has not had any bowel movement. Exam Data for Last 24 hours Vital signs and Labs for Last 24 Hours: Temp Pulse Resp BP Pulse Ox 98 F 81 16 113/58 L 100 12/03/21 04:00 12/03/21 04:00 12/03/21 04:00 12/03/21 04:00 12/03/21 04:00 Laboratory Results - last 24 hr 12/03/21 05:40: WBC 4.6 L, RBC 4.06 L, Hgb 12.2, Hct 37.7, MCV 93.0, MCH 30.0, MCHC 32.3, RDW 13.3, Plt Count 220 D, MPV 8.1, Neut % (Auto) 49.8, Lymph % (Auto) 42.2, [place] % (Auto) 4.5, Eos % (Auto) 1.7, Baso % (Auto) 1.8, Neut # (Auto) 2.3, Lymph # (Auto) 2.0, [place] # (Auto) 0.2, Eos # (Auto) 0.1, Baso # (Auto) 0.1 12/03/21 05:40: Sodium 141, Potassium 4.3, Chloride 108 H, Carbon Dioxide 25, Anion Gap 12.3, BUN 6 L D, Creatinine 0.70, Estimated Creat Clear 116, Estimated GFR 89, Est GFR ( Amer) 107, Glucose 89, Calcium 8.2 L I & O for Last 24 hours: Intake & Output 11/30/21 12/01/21 12/02/21 12/03/21 11:59 11:59 11:59 11:59 Intake Total 395 / 395 2538 / 2538 Output Total 600 / 600 Balance 395 / 95 1938 / 1938 Weight 168 lb 4 oz 168 lb Constitutional Constitutional: no acute distress Progress Note: A&P Assessment and Plan Assessment and Plan for All Diagnoses:: Will advance to a soft diet. Probable discharge today on oral Protonix with early outpatient follow-up for repeat hemoglobin and I would plan to see her in the office in a couple of weeks to schedule repeat endoscopy and likely in approximately 8 to 10 weeks.
[2021-12-03 07:56] VITALS: BP 126/79; PULSE 82; RESP 18; TEMP 36.4; O2SAT 100
--- NOTE | 2021-12-03 09:35 | EXP.DC.SUM ---
General Admission date:: 12/02/21 Discharge date: 12/03/21 HPI HPI HPI: Patient presented to the emergency department in the evening of 12/01/2021 after she had 3 episodes of what she describes as bloody vomiting. She had nausea earlier that morning. Her only medication change has been recent weight loss drugs. She was found to have hemoglobin of 13.9. She underwent CT scan which revealed calcified gallstones within the gallbladder and diverticulosis. Of note, the patient did undergo colonoscopy on 01/09/2021. She had a CT scan which revealed some thickening of the sigmoid colon and stranding consistent with diverticulitis several months prior to that. Colonoscopy revealed diverticulosis with likely some chronic fibrosis and stricture was confirmed by barium enema and she ultimately required sigmoid colon resection. She describes onset of nausea with gross hematemesis. No prior history of ulcer disease. No previous similar history. Hospital Course Hospital Course Hospital Course: 51-year-old female patient admitted to the [facility] after reports of 2 bloody emesis. General surgery was consulted 12/01/21 Abd/Pelvis CT: FINDINGS: Liver: Parenchymal enhancement is not evaluated without contrast. No hepatomegaly.? Gallbladder and bile ducts: Calcified gallstones within the gallbladder lumen. Pancreas: Parenchymal enhancement is not evaluated without contrast. No ductaldilation.? Spleen: Parenchymal enhancement is not evaluated without contrast. No splenomegaly. Adrenal glands: No mass. Kidneys and ureters: 4.1 cm low-density right renal lesion which is likely acyst. No hydronephrosis. Stomach and bowel:? Postsurgical changes.? Diverticulosis coli without evidencefor diverticulitis.? No obstruction. Appendix: No evidence of appendicitis. Intraperitoneal space: No free air. No significant fluid collection. Vasculature: Limited evaluation without contrast. No abdominal aortic aneurysm. Lymph nodes: No enlarged lymph nodes. Urinary bladder: No acute abnormality. Reproductive: Status post hysterectomy. Bones/joints: No acute fracture. Soft tissues: Limited evaluation without contrast. No significant soft tissueswelling. IMPRESSION: 1. Calcified gallstones within the gallbladder lumen. 2. Diverticulosis coli without evidence for diverticulitis Electronically signed by Aden Gao MD 12/02/21 GenSurg performed an EGD: Olympus endoscope was inserted via the oropharynx.? Esophagus was intubated and endoscope was advanced.? Overall esophagus appeared relatively unremarkable.? However, gastroesophageal junction was encountered at approximately 37 cm from the incisors.? There was evidence of possible Kaufman's esophagus.? There was a moderate sized erosion with exudate and red spot possibly consistent with vessel.? There was no evidence of any bleeding at that time.? Stomach was cannulated and insufflated.? Retroflexion revealed a very tiny sliding hiatal hernia.? Pylorus was traversed.? Within the duodenal bulb there was some minor patchy nonerosive duodenitis.? Endoscope was once again withdrawn into the distal esophagus.? Given the clinical history and possible stigmata of recent bleeding decision was made for submucosal of epinephrine circumferentially.? 9 mL of 0.1 mg/mL epinephrine was injected circumferentially around the erosion/ulceration at the GE junction to assure hemostasis.? There was good hemostasis.? Stomach was desufflated and the endoscope was withdrawn. Findings:: Gastroesophageal junction at 37 cm Erosions/tiny ulceration at the gastroesophageal junction Very tiny hiatal hernia Minor nonerosive duodenitis Recommendations:: I would recommend proton pump inhibitors.? May consider Cytotec.? Continue to monitor for clinical bleeding and hemoglobin stability. Hemoglobin/hematocrit stable at 12.2 and 37.7. Patient denies any visible blood during the night. She has tolerated a soft breakfast without a
--- NOTE | 2021-12-04 13:34 | CARE MANAGER ---
Left message for post-discharge phone interview.
== END 2021-12-03 10:41 | disposition home or self-care (01) ==
LOC: ER 20:06 → 2ND 12-02 00:32
PROVIDERS: Nurse Practitioner Family; Surgery; Admitting Provider Emergency Medicine; Emergency Provider Emergency Medicine; PCP Family Medicine; Visit Provider Family Medicine
PROC: 0DJ08ZZ Inspection of Upper Intestinal Tract, Via Natural or Artificial Opening Endoscopic (ICD-10-PCS; CPT 43235; principal; 2021-12-02 10:00)
DX: K25.4 Chronic or unspecified gastric ulcer with hemorrhage (principal); K44.9 Diaphragmatic hernia without obstruction or gangrene; Z20.822 Contact with and (suspected) exposure to COVID-19; K29.80 Duodenitis without bleeding; K22.10 Ulcer of esophagus without bleeding
CPT/HCPCS: 43236; 36415; 71046; 74176; 80048; 80053; 81001; 82150; 82272; 83690; 84145; 85025; 85651; 86140; 99285; C9803; G0328; G0378; J2405; U0003; U0005

== ENCOUNTER → 2021-12-05 12:04 | Outpatient (CLI) | payer OTHER, SELFPAY ==
[2021-12-05 13:00] LABS: Basophils # 0.1 K/mm3 (0-0.2); Basophils % 1.3 % (0.1-2.0); Eosinophils # 0.1 K/mm3 (0.0-0.4); Eosinophils % 1.7 % (0.1-12.0); Hematocrit 40.6 % (37.0-47.0); Hemoglobin 13.7 g/dL (12.2-16.2); Lymphocytes # 1.6 K/mm3 (0.7-4.5); Lymphocytes % 30.2 % (10-50); Mean Corpuscular HGB Conc 33.9 g/dL (31.8-35.4); Mean Corpuscular Hemoglobin 29.8 pg (27.0-31.2); Mean Corpuscular Volume 87.9 fl (81-99); Mean Platelet Volume 7.7 fl (7.4-10.4); Monocytes # 0.2 K/mm3 (0.1-1.0); Monocytes % 4.5 % (1.7-9.3); Neutrophils # 3.2 K/mm3 (1.8-7.8); Neutrophils % 62.2 % (37.0-80.0); Platelet Count 373 K/mm3 (142-424); Red Blood Count 4.62 M/mm3 (4.20-5.40); White Blood Count 5.2 K/mm3 (4.8-10.8)
== END ==
PROVIDERS: PCP Family Medicine; Visit Provider Family Medicine
DX: K92.2 Gastrointestinal hemorrhage, unspecified (principal)
CPT/HCPCS: 36415; 85025

== ENCOUNTER 2022-01-31 08:02 | Day surgery (SDC) | payer OTHER, SELFPAY ==
[2022-01-30 10:58] VITALS: BMI 32.2
[2022-01-31 08:38] VITALS: BP 114/50; PULSE 73; RESP 18; TEMP 36.2; O2SAT 99
--- NOTE | 2022-01-31 09:10 | EXP.ANES.CKL ---
[facility] Medical History Bronchitis Diverticulosis Ear pain, right History of patellar fracture Surgical History History of colon resection History of esophagogastroduodenoscopy (EGD) History of hysterectomy History of surgery Family History Other Family history of pulmonary fibrosis Social History Smoking Status: Former smoker alcohol intake: never substance use type: denies use current occupational status: employed Travel in the last 8 weeks: None household members: spouse housing: apartment current occupation: cpa caffeine: Yes [facility] Anesthesia Checklist Patient Identification Patient Identification: Arm Band Structural Data Admitted From: Home Planned Operative Procedure/s: EGD Consent for Planned Operative Procedure(s) Verified: Yes Verified Documents: Surgical Consent and History and Physical NPO Status Verified Time NPO: 00:00 Additional verifications Anesthesia Reactions: No Airway Assessment C-Spine Mobility Assessed: Yes TMJ Mobility Assessed: Yes Dentition: Good Dentition Neurological Assessment Level of Consciousness: Awake and Alert Anesthesia Plan Anesthesia Risk discussed: Yes Anesthesia Plan: Verified ASA Class: II Anesthesia Type: MAC
--- NOTE | 2022-01-31 09:42 | EXP.GEN.HP ---
HPI HPI HPI: Patient presents for follow-up EGD. She underwent inpatient EGD on 12/02/2021.? She is a 51-year-old female whom I had previously seen for colonoscopy and she was found to have significant diverticular stricture and underwent laparoscopic colon resection in February [address] Ada Franz.? She had presented to the emergency department on 12/01/2021 with 3 episodes of significant hematemesis.? EGD revealed gastroesophageal junction at 37 cm with tiny erosion/ulceration at the gastroesophageal junction and very tiny hiatal hernia.? There was no active bleeding from the erosion but intervention was performed as a preventative measure with injection of epinephrine.? She remained stable.? She is not taking antacid at home as she states that she does not have heartburn.? She is without any complaints. [facility] Medical History Bronchitis Diverticulosis Ear pain, right History of patellar fracture Surgical History History of colon resection History of esophagogastroduodenoscopy (EGD) History of hysterectomy History of surgery Family History Family history of pulmonary fibrosis Social History Smoking Status: Former smoker alcohol intake: never substance use type: denies use current occupational status: employed Travel in the last 8 weeks: None household members: spouse housing: apartment current occupation: cpa caffeine: Yes Meds Home Medications and Allergies Home Medications Medication Instructions Recorded Confirmed Type pantoprazole 40 mg tablet,delayed 40 mg PO DAILY GERD 01/31/22 History release New Prescriptions to Start Prescriptions: Allergies Allergy/AdvReac Type Severity Reaction Status Date / Time shellfish derived Allergy Severe Difficulty Verified 12/19/21 08:53 Breathing naproxen Allergy Mild Vomiting Verified 12/19/21 08:53 penicillin G Allergy Mild Rash Verified 12/19/21 08:53 bupropion [From Wellbutrin] AdvReac GI bleed Verified 12/19/21 08:53 metformin AdvReac GI bleed Verified 12/19/21 08:53 Exam Data for Last 24 hours Vital signs and Labs for Last 24 Hours: Temp Pulse Resp BP Pulse Ox 97.1 F L 73 18 114/50 L 99 01/31/22 08:38 01/31/22 08:38 01/31/22 08:38 01/31/22 08:38 01/31/22 08:38 I & O for Last 24 hours: Intake & Output 01/28/22 01/29/22 01/30/22 01/31/22 11:59 11:59 11:59 11:59 Weight 165 lb Constitutional Constitutional: no acute distress *Routine HEENT Exam Head: Present normocephalic Eye: Present EOMI ENT: Present other *Routine Respiratory Exam Respiratory: Present CTA bilaterally *Routine Cardiovascular Exam Cardiovascular: Present RRR *Routine Abdominal Exam Abdominal: Present soft *Routine Rectal Exam Rectal:: deferred *Routine Genitalia Exam Genitalia:: deferred Assessment and Plan *Assessment and plan (1) GI bleed: Status: Acute Category: Medical Code(s): K92.2 - Gastrointestinal hemorrhage, unspecified Plan EGD
[2022-01-31 09:57] VITALS: O2SAT 99
--- NOTE | 2022-01-31 10:11 | [facility].SCOPE ---
Procedure: Date: 01/31/22 Patient Date of :: 1970 Procedure Performed:: Esophagogastroduodenoscopy with biopsies Indications:: Patient presents for follow-up EGD.? She underwent inpatient EGD on 12/02/2021.? She is a 51-year-old female whom I had previously seen for colonoscopy and she was found to have significant diverticular stricture and underwent laparoscopic colon resection in February [address] Ada Franz.? She had presented to the emergency department on 12/01/2021 with 3 episodes of significant hematemesis.? EGD revealed gastroesophageal junction at 37 cm with tiny erosion/ulceration at the gastroesophageal junction and very tiny hiatal hernia.? There was no active bleeding from the erosion but intervention was performed as a preventative measure with injection of epinephrine.? She remained stable.? She is without any complaints. Performing Provider:: Rome Carreon MD Referring Provider:: Simon Aguirre MD Sedation:: MAC sedation Procedure:: Patient was taken to endoscopy procedure room. She was positioned in lateral decubitus position. Adequate intravenous sedation was achieved with anesthesia titration of propofol. Olympus endoscope was inserted via the oropharynx. Esophagus was cannulated. Overall esophagus appeared unremarkable. Gastroesophageal junction was encountered at approximately 36 cm. There was no evidence of any ulcer or erosion. Stomach was cannulated and insufflated. Retroflexion actually on this endoscopy revealed no visible evidence of appreciable hiatal hernia. There is some diffuse moderate nonerosive gastropathy. Gastric biopsy was obtained for CLOtest for H. pylori. Pylorus was traversed. Duodenum appeared unremarkable. Additional biopsies were obtained within the gastric lumen to assess the gastritis. A couple of very limited biopsies were obtained at the gastroesophageal junction. Stomach was desufflated and the endoscope was withdrawn. Findings:: Gastroesophageal junction at 36 cm Diffuse gastropathy/gastritis (nonerosive) Recommendations:: Ulcer/erosion had shown healing. Follow-up medical management based on biopsies. May be able to discontinue proton pump inhibitors. Complications:: None immediately apparent Estimated blood obtained (mL): 2
[2022-01-31 10:14] VITALS: BP 112/63; PULSE 81; RESP 18; TEMP 36.6; O2SAT 97
[2022-01-31 10:24] VITALS: BP 113/68; PULSE 80; RESP 18; TEMP 36.6; O2SAT 97
[2022-01-31 10:34] VITALS: BP 106/63; PULSE 72; RESP 18; TEMP 36.6; O2SAT 98
[2022-01-31 10:48] VITALS: BP 106/63; PULSE 72; RESP 18; TEMP 36.6; O2SAT 98
== END 2022-01-31 10:48 | disposition home or self-care (01) ==
PROVIDERS: PCP Family Medicine; Visit Provider Surgery
PROC: 0DJ08ZZ Inspection of Upper Intestinal Tract, Via Natural or Artificial Opening Endoscopic (ICD-10-PCS; CPT 43235; principal; 2022-01-31 09:00)
DX: K29.70 Gastritis, unspecified, without bleeding (principal); Z87.19 Personal history of other diseases of the digestive system; Z90.49 Acquired absence of other specified parts of digestive tract
CPT/HCPCS: 43239; 87339